=== PATIENT | female | born 1960 | race Caucasian/White ===

== ENCOUNTER 2017-08-29 13:47 | Observation (INO) | payer BC, SELFPAY ==
[2017-08-29 14:15] VITALS: BP 172/71; PULSE 56; RESP 16; TEMP 36.6; O2SAT 96
[2017-08-29 14:16] VITALS: BMI 32.5
[2017-08-29 14:22] VITALS: BMI 32.5
[2017-08-29 15:29] VITALS: PULSE 56
--- NOTE | 2017-08-29 16:07 | PCM.HP.STD ---
Problem List (1) Chest pain Status: Acute (2) Obesity Status: Chronic (3) Sciatica Status: Chronic History of Present Illness Date of Admission: 08/29/17 Chief Complaint: chest pain The patient is a 57 year old F with a hx of sciatica and obesity, takes only motrin, who presented to [facility] with a chief complaint of chest pain. This began yesterday, she woke up with it. It was intermittent throughout the day, it would last for several hours at a time. She described it as a midsternal sensation of something being stuck in her throat. It was not present today however she had left sided jaw pain that radiated into her left arm. She cannot identify any aggravating or alleviating factors. She also has been nauseous and on saturday was vomiting. No further vomiting. After vomiting she had chills. She has also had loose stools. No abdominal pain. She has no dizziness or LH, no palp. She sometimes notices dyspnea with stairs. Currently no SOB. At [facility] she had negative troponin, negative EKG, and an elevated D dimer followed by negative CTA of the chest. She was then transferred to [facility]. She had a stress test in 2011 with echo and EKG - she cannot remember why it was ordered, but states it was negative for heart disease. 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 Denies: Palpitations Respiratory: Reports: Shortness of breath upon exertion. Denies: Cough, Shortness of breath at rest, Sputum production Gastrointestinal: Reports: Diarrhea, Nausea, Vomiting. Denies: Abdominal Pain Genitourinary: Denies: Dysuria Musculoskeletal: Denies: Joint Pain, Joint Tenderness Skin: Denies: Rash, Wounds Neurological: Denies: Numbness, Tingling, Focal weakness Psychiatric: Denies: Anxiety, Depression, Homicidal Ideations, Suicidal Ideations Hematologic/ Lymphatic: Denies: Easy Bruising, Easy Bleeding VTE Information - Inpt Only VTE Present on Admission: No VTE Mechan Device Prophylaxis: None VTE Pharm Prophylaxis ordered?: Yes Patient Problems: Active and Suspected Problems Chest pain (Acute) - Physical Exam General: Alert, Oriented x3, Cooperative HEENT: Atraumatic, PERRLA, EOMI, Normocephalic Neck: Supple, No JVD, Negative Carotid Bruits Lungs: Clear to auscultation, Normal air movement Cardiovascular: Regular rate, No murmurs Abdomen: Bowel Sounds Present, Soft, Non Tender, Obese Extremities: No edema, Capillary Refill Less than 3 Seconds Skin: No rashes, No breakdown Musculoskeletal: No Tenderness to Palpation of Joints or Extremities Neurological: Cranial nerves II-XII grossly intact Psych/Mental Status: Normal Affect, Appropriate Vital Signs Temp Pulse Resp BP Pulse Ox 97.9 F 56 L 16 172/71 H 96 08/29/17 14:15 08/29/17 15:29 08/29/17 14:15 08/29/17 14:15 08/29/17 14:15 Oxygen Delivery Method Room Air Weight: 99.8 kg Body Mass Index (BMI) 32.5 Laboratory Tests Past 24 Hrs 08/29/17 15:10 Troponin I < 0.02 Assessment/Plan Active and Suspected Problems Chest pain (Acute) 1. Atypical chest pain - midsternal feeling of something stuck in throat with negative EKG, CTA, and troponin. Risk factors include jaw pain with radiation into the arm, some SOB with steps, obesity, + family hx of heart disease, HTN on presentation. She will have repeat troponins, tele monitoring, and treadmill stress test in the AM. She has also had some GI symptoms including like nausea and vomiting, diarrhea, is on motrin, and has a hx of H pylori. There may be underlying gastric disease. 2. HTN - trend and initiate therapy if indicated. 3. Chronic back pain with sciatica - on motrin DVT ppx: lovenox This patient was seen by John Wilkes PA-C under the supervision of Dr. Haley.
--- NOTE | 2017-08-29 16:18 | HP.PCM_ITS ---
Problem List (1) Chest pain Status: Acute (2) Obesity Status: Chronic (3) Sciatica Status: Chronic History of Present Illness Date of Admission: 08/29/17 Chief Complaint: chest pain The patient is a 57 year old F with a hx of sciatica and obesity, takes only motrin, who presented to [place] [facility] with a chief complaint of chest pain. This began yesterday, she woke up with it. It was intermittent throughout the day, it would last for several hours at a time. She described it as a midsternal sensation of something being stuck in her throat. It was not present today however she had left sided jaw pain that radiated into her left arm. She cannot identify any aggravating or alleviating factors. She also has been nauseous and on saturday was vomiting. No further vomiting. After vomiting she had chills. She has also had loose stools. No abdominal pain. She has no dizziness or LH, no palp. She sometimes notices dyspnea with stairs. Currently no SOB. At [place] [facility] she had negative troponin, negative EKG, and an elevated D dimer followed by negative CTA of the chest. She was then transferred to [facility]. She had a stress test in 2011 with echo and EKG - she cannot remember why it was ordered, but states it was negative for heart disease. 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 Denies : Palpitations Respiratory: Reports: Shortness of breath upon exertion. Denies: Cough, Shortness of breath at rest, Sputum production Gastrointestinal: Reports: Diarrhea, Nausea, Vomiting. Denies: Abdominal Pain Genitourinary: Denies: Dysuria Musculoskeletal: Denies: Joint Pain, Joint Tenderness Skin: Denies: Rash, Wounds Neurological: Denies: Numbness, Tingling, Focal weakness Psychiatric: Denies: Anxiety, Depression, Homicidal Ideations, Suicidal Ideations Hematologic/ Lymphatic: Denies: Easy Bruising, Easy Bleeding VTE Information - Inpt Only VTE Present on Admission: No VTE Mechan Device Prophylaxis: None VTE Pharm Prophylaxis ordered?: Yes Patient Problems: Active and Suspected Problems Chest pain (Acute) - Physical Exam General: Alert, Oriented x3, Cooperative HEENT: Atraumatic, PERRLA, EOMI, Normocephalic Neck: Supple, No JVD, Negative Carotid Bruits Lungs: Clear to auscultation, Normal air movement Cardiovascular: Regular rate, No murmurs Abdomen: Bowel Sounds Present, Soft, Non Tender, Obese Extremities: No edema, Capillary Refill Less than 3 Seconds Skin: No rashes, No breakdown Musculoskeletal: No Tenderness to Palpation of Joints or Extremities Neurological: Cranial nerves II-XII grossly intact Psych/Mental Status: Normal Affect, Appropriate Vital Signs Temp Pulse Resp BP Pulse Ox 97.9 F 56 L 16 172/71 H 96 08/29/17 14:15 08/29/17 15:29 08/29/17 14:15 08/29/17 14:15 08/29/17 14:15 Oxygen Delivery Method Room Air Weight: 99.8 kg Body Mass Index (BMI) 32.5 Laboratory Tests Past 24 Hrs 08/29/17 15:10 Troponin I < 0.02 Assessment/Plan Active and Suspected Problems Chest pain (Acute) 1. Atypical chest pain - midsternal feeling of something stuck in throat with negative EKG, CTA, and troponin. Risk factors include jaw pain with radiation into the arm, some SOB with steps, obesity, + family hx of heart disease, HTN on presentation. She will have repeat troponins, tele monitoring, and treadmill stress test in the AM. She has also had some GI symptoms including like nausea and vomiting, diarrhea, is on motrin, and has a hx of H pylori. There may be underlying gastric disease. 2. HTN - trend and initiate therapy if indicated. 3. Chronic back pain with sciatica - on motrin DVT ppx: lovenox This patient was seen by John Wilkes PA-C under the supervision of Dr. Haley.
[2017-08-29 18:54] VITALS: PULSE 60
[2017-08-29 19:50] VITALS: BP 161/75; PULSE 67; RESP 16; TEMP 36.7; O2SAT 96
[2017-08-29] MEDS: Acetaminophen 325 MG Tablet 650 MG PO (19:59)
[2017-08-29 22:15] VITALS: BP 156/83; PULSE 56; RESP 18; TEMP 36.7; O2SAT 97
[2017-08-29 23:11] VITALS: PULSE 61
[2017-08-30 02:57] VITALS: PULSE 55
[2017-08-30 04:08] VITALS: BP 154/66; PULSE 67; RESP 16; TEMP 36.7; O2SAT 95
[2017-08-30 05:11] LABS: Absolute Lymphocyte Count 1.61 X10^3/ul (0.83-4.51); Absolute Neutrophil Count 2.3 X10^3/uL (2.0-7.7); Basophil# 0.03 X10^3/uL; Basophil% 0.6 % (0-1); Eosinophil# 0.17 X10^3/uL; Eosinophils% 3.6 % (0-5); Hematocrit 42.4 % (37-47); Hemoglobin 14.6 g/dl (12.0-15.0); Lymphocyte # 1.61 X10^3/ul (4.0); Lymphocyte % 34.2 % (19-41); Mean Corp Hgb Conc 34.4 g/gl (32-36); Mean Corpuscular Hgb 32.5 pg (27.0-32.0); Mean Corpuscular Volume 94.4 fL (81-99); Mean Platelet Vol. 10.1 fl (6.2-12.0); Monocyte% 12.7 % (0-10); Neutrophil # 2.29 X10^3/uL (2.7-7.7); Neutrophil % 48.7 % (47-70); Platelet Count 184 K/mm3 (150-450); RBC Distribution Width CV 12.7 % (11.6-14.6); RBC Distribution Width SD 43.1 fl (35.1-43.9); Red Blood Count 4.49 M/mm3 (4.2-5.4); White Blood Count 4.7 K/mm3 (4.4-11.0)
[2017-08-30 05:13] LABS: POSITIVE COUNT NO; POSITIVE DIFFERENTIAL NO; POSITIVE MORPHOLOGY NO
[2017-08-30 05:15] LABS: International Normalized Ratio 1.1; Partial Thromboplast Time 28.8 Seconds (24.1-36.2); Prothrombin Time (Protime)PT. 13.8 SECONDS (11.7-14.9)
[2017-08-30 05:29] LABS: Anion Gap 9 (5-15); BUN 11 mg/dL (7-18); Calcium,Total 8.5 mg/dL (8.5-10.1); Chloride 105 mmol/L (98-107); Creatinine, Serum 0.61 mg/dL (0.55-1.02); EST Glomerular Filtration Rate 108 mL/min (>60); Est Glom Filt Rate - Afr Amer 130 mL/min (>60); Glucose 91 mg/dL (74-106); Potassium 3.2 mmol/L (3.5-5.1); Sodium Level 142 mmol/L (136-145)
[2017-08-30 05:41] VITALS: BP 139/77; PULSE 60; RESP 16; TEMP 36.4; O2SAT 95
--- NOTE | 2017-08-30 05:55 | EKG12_ITS ---
Test Reason : AM EKG Blood Pressure : / mmHG Vent. Rate : 056 BPM Atrial Rate : 056 BPM P-R Int : 180 ms QRS Dur : 092 ms QT Int : 476 ms P-R-T Axes : 051 -36 015 degrees QTc Int : 459 ms Sinus bradycardia Left axis deviation Abnormal ECG When compared with ECG of 08-AUG-2007 08:49, No significant change was found Confirmed by KWAN CATES, JANNETTE ([id number]), sports editor WESLY LEO ([id number]) on 09/02/2017 3:26:19 PM Referred By: Edwar Haley Confirmed By:JANNETTE BOWENS MD
--- NOTE | 2017-08-30 08:18 | PCM.DC.SUM ---
Discharge Date and Diagnosis Date of Admission: 08/29/17 Date of Discharge: 08/30/17 - Primary Discharge Diagnosis Chest pain - GERD obesity HTN Chronic back pain with sciatica Hypokalemia - Secondary Discharge Diagnosis Chronic Problems Obesity (Chronic) Sciatica (Chronic) Hospital Course and Treatment Imaging Results: CTA from outside facility negative for PE. Stress test negative. Operations: None Procedures: Stress test Summary of Care Provided: Physical exam on day of discharge: General: Resting comfortably NAD Psych: A/Ox3 normal affect HEENT: PEARRLA AT [place] Neck: Supple NT CV: RRR no m/t/r/g/h Resp: CTA Abd: [id number] Soft NT no guarding or rigidity Ext: DP2+= no edema Skin: W/D normal turgor Lymph/Heme: No active bleeding or adenopathy Neuro: CN2-12 intact Hospital course: The patient is a 57 year old F who presented to [place] for intermittent chest pain that she woke up with described as something stuck in her esophagus with jaw pain and left arm pain, and occasional dyspnea with stairs. She also had been complaining of vomiting and diarrhea. She had previously had a stress test with echo in 2011 which was negative. She had a negative CTA at [place], and negative EKG and troponin and was transferred to [facility] for CP work up. She had repeat enzymes, EKG, tele monitoring, and a stress test the following day. Stress test was negative. It was felt that the symptoms were consistent with reflux and she was placed on protonix. BP was running somewhat elevated but the patient desired to try dietary modification in lieu of medication at this time. Potassium was replaced. She was discharged home in stable condition. Patient was seen by John Wilkes PA-C under the supervision of Dr. Magana. [] Discharge Diet: Low fat/ Low Cholesterol, 2000 mg Sodium Diet Discharge Activity: Return to Normal Activity Home Medications: Medications to take at Discharge Ibuprofen [Motrin] 800 mg PO DAILY PRN 08/29/17 Acetaminophen [Tylenol Tablet] 650 mg PO Q6H PRN PRN tablet 08/30/17 Pantoprazole Sodium [Protonix] 40 mg PO DAILY #30 tab 08/30/17 Following Prescrptions Were Given to Patient: Pantoprazole Sodium [Protonix] 40 mg PO DAILY #30 tab Primary Care Physician: Reynaldo Flores MD [Primary Care Provider] - Please follow up with your Primary Care Physician in: 1-2 weeks Disposition: Home Minutes spent on discharge:: 35 Patient Condition:: Stable Meaningful Use Info Meaningful Use Diagnoses (Choose all that apply): None applicable
--- NOTE | 2017-08-30 09:39 | STRESSREP ---
Stress Test Report Exercise myocardial perfusion stress test. 57-year-old lady with a history of chest pain. Stress protocol: Resting EKG demonstrates normal sinus rhythm with a rate of 62 beats minute occasional premature ventricular complex noted. The patient exercised according to regular [place] protocol for total duration of 6 minutes the maximum heart rate attained was 148 bpm which was 89% maximum predicted heart rate the maximum workload attained was 7 metabolic equivalents. At rest there were no ST or T-wave changes noted suggest ischemia at peak exercise upsloping ST changes only were noted with no meet the criteria for ischemia. Resting blood pressure is 142/90 mmHg peak blood pressure is 162/90 mmHg. No clinical angina was noted the test was terminated due to leg fatigue. Myocardial perfusion protocol. 11.8 mCi of technetium 99m sestamibi was injected at rest. The patient exercised according to regular [place] protocol for 6 minutes attaining 7 metabolic equivalents at peak exercise 33.9 mCi of technetium 99m sestamibi was injected. Stress images were obtained. Stress and rest images were reconstructed and compared in the short axis vertical long and horizontal long axis. Gated images were also obtained. Perfusion SPECT analysis. Review of the stress images demonstrate normal uptake of tracer noted in all areas of the myocardium. The resting images similarly demonstrate normal uptake of tracer noted in all areas of the myocardium. No areas of reversibility are noted suggest ischemia. No previous infarct is noted. Gated SPECT analysis. The gated ejection fraction is noted to be 73%. Conclusion: Normal exercise myocardial perfusion stress test at a moderate workload. No clinical angina noted. Preserved ejection fraction.
[2017-08-30 10:12] VITALS: BP 146/81; PULSE 76; RESP 16; TEMP 36.9; O2SAT 95
--- NOTE | 2017-08-30 10:32 | PCM.DC ---
- Discharge Diagnoses Current Active Problems: Current Active and Chronic Problems Chest pain (Acute) Obesity (Chronic) Sciatica (Chronic) You will use the following diet at home:: Cardiac - 2000 mg sodium per day Your food should be the consistency of: Regular Your liquids should be the consistency of: Regular/Thin Discharge Activity: Return to Normal Activity Additional Instructions: Please have your blood pressure checked daily. Keep a log of the readings and present them to your family doctor at follow up. Allergies/Adverse Reactions: Allergies latex Allergy (Verified 08/29/17 14:22) Angioedema Medications to take at Discharge Ibuprofen [Motrin] 800 mg PO DAILY PRN 08/29/17 Acetaminophen [Tylenol Tablet] 650 mg PO Q6H PRN PRN tablet 08/30/17 Pantoprazole Sodium [Protonix] 40 mg PO DAILY #30 tab 08/30/17 The following prescriptions were given: Pantoprazole Sodium [Protonix] 40 mg PO DAILY #30 tab Primary Care Physician: Reynaldo Flores MD [Primary Care Provider] - Please follow up with your Primary Care Physician in: 1-2 weeks Proposed Discharge Date: 08/30/17
--- NOTE | 2017-09-02 08:27 | DS.PCM_ITS ---
Discharge Date and Diagnosis Date of Admission: 08/29/17 Date of Discharge: 08/30/17 - Primary Discharge Diagnosis Chest pain - GERD obesity HTN Chronic back pain with sciatica Hypokalemia - Secondary Discharge Diagnosis Chronic Problems Obesity (Chronic) Sciatica (Chronic) Hospital Course and Treatment Imaging Results: CTA from outside facility negative for PE. Stress test negative. Operations: None Procedures: Stress test Summary of Care Provided: Physical exam on day of discharge: General: Resting comfortably NAD Psych: A/Ox3 normal affect HEENT: PEARRLA AT MS Neck: Supple NT CV: RRR no m/t/r/g/h Resp: CTA Abd: [id number] Soft NT no guarding or rigidity Ext: DP2+= no edema Skin: W/D normal turgor Lymph/Heme: No active bleeding or adenopathy Neuro: CN2-12 intact Hospital course: The patient is a 57 year old F who presented to [place] [facility] for intermittent chest pain that she woke up with described as something stuck in her esophagus with jaw pain and left arm pain, and occasional dyspnea with stairs. She also had been complaining of vomiting and diarrhea. She had previously had a stress test with echo in 2011 which was negative. She had a negative CTA at [place], and negative EKG and troponin and was transferred to [facility] for CP work up. She had repeat enzymes, EKG, tele monitoring, and a stress test the following day. Stress test was negative. It was felt that the symptoms were consistent with reflux and she was placed on protonix. BP was running somewhat elevated but the patient desired to try dietary modification in lieu of medication at this time. Potassium was replaced. She was discharged home in stable condition. Patient was seen by John Wilkes PA-C under the supervision of Dr. Magana. [] Discharge Diet: Low fat/ Low Cholesterol, 2000 mg Sodium Diet Discharge Activity: Return to Normal Activity Home Medications: Medications to take at Discharge Ibuprofen [Motrin] 800 mg PO DAILY PRN 08/29/17 Acetaminophen [Tylenol Tablet] 650 mg PO Q6H PRN PRN tablet 08/30/17 Pantoprazole Sodium [Protonix] 40 mg PO DAILY #30 tab 08/30/17 Following Prescrptions Were Given to Patient: Pantoprazole Sodium [Protonix] 40 mg PO DAILY #30 tab Primary Care Physician: Reynaldo Flores MD [Primary Care Provider] - Please follow up with your Primary Care Physician in: 1-2 weeks Disposition: Home Minutes spent on discharge:: 35 Patient Condition:: Stable Meaningful Use Info Meaningful Use Diagnoses (Choose all that apply): None applicable
== END 2017-08-30 11:20 | disposition home or self-care (01) ==
PROVIDERS: Admitting Provider Internal Medicine; Family Provider Family Medicine; PCP Family Medicine
DX: R07.89 Other chest pain (principal); K21.9 Gastro-esophageal reflux disease without esophagitis; R68.84 Jaw pain; E66.9 Obesity, unspecified; Z68.32 Body mass index [BMI] 32.0-32.9, adult; Z71.3 Dietary counseling and surveillance; M54.30 Sciatica, unspecified side; G89.29 Other chronic pain; I10 Essential (primary) hypertension; R11.2 Nausea with vomiting, unspecified; R19.7 Diarrhea, unspecified; E87.6 Hypokalemia; M79.602 Pain in left arm; R06.09 Other forms of dyspnea
CPT/HCPCS: 36415; 78452; 80048; 84484; 85025; 85610; 85730; 93005; 93017; 99218; A9500; A4216; G0378; G0379

== ENCOUNTER → 2019-10-13 13:31 | Outpatient (CLI) | payer BC, SELFPAY ==
[2019-10-13 13:20] VITALS: BMI 32.5
--- NOTE | 2019-10-13 13:33 | RAD_ITS ---
STUDY: X-RAY - RIGHT KNEE REASON FOR EXAM: Female, 59 years old. Right knee injury September 07 -- now swelling x 3 days TECHNIQUE: 4 view(s) of the knee. COMPARISON: None. FINDINGS: Normal visualized distal femur. Normal visualized proximal tibia and fibula. Normal proximal tibiofibular articulation. Normal medial femorotibial compartment. Normal lateral femorotibial compartment. Normal patellofemoral articulation. The soft tissue structures are unremarkable. RAD/Knee 4 or More Views IMPRESSION: Normal x-ray examination of the knee. Electronically Signed: Eric Santillan, at 14:08 EDT , Service support ,
== END ==
PROVIDERS: PCP Family Medicine; Referring Provider Physician Assistant Surgical; Visit Provider Physician Assistant Surgical
DX: S80.01XA Contusion of right knee, initial encounter (principal)
CPT/HCPCS: 73564